=== PATIENT | male | born 1985 | race African-American/Black ===

== ENCOUNTER → 2021-02-20 | Emergency (ER) | payer SELFPAY ==
[~2021-02-20] MED LIST: ACETAMINOPHEN 325 MG TABLET (FP) ONE; ACETAMINOPHEN 500 MG TABLET (FP) PO ONE; DIPHTH,PERTUSS(ACELL),TET 0.5 ML DISP.SYRIN IM ONE; LIDOCAINE HCL 2% (50ML VIAL) SQ ONE
[2021-02-20 03:04] VITALS: BP 136/65; PULSE 77; TEMP 98.1; BMI 24.7
== END ==
LOC: JER 02:39
PROC: 0HQGXZZ Repair Left Hand Skin, External Approach (ICD-10-PCS; principal; 2021-02-20)
PROC: 3E0234Z Introduction of Serum, Toxoid and Vaccine into Muscle, Percutaneous Approach (ICD-10-PCS; 2021-02-20)
DX: S61.412A Laceration without foreign body of left hand, initial encounter (principal); S61.012A Laceration without foreign body of left thumb without damage to nail, initial encounter; W26.8XXA Contact with other sharp object(s), not elsewhere classified, initial encounter
CPT/HCPCS: 90715; 99284-25

== ENCOUNTER 2021-02-27 12:48 | Emergency (ER) | payer BC ==
[2021-02-27 13:06] VITALS: BP 124/65; PULSE 71; TEMP 97.6; BMI 28.1
== END 2021-02-27 13:53 | disposition home or self-care (01) ==
LOC: JERFT 12:48 → JER 12:48 → JERFT 13:53
DX: Z48.02 Encounter for removal of sutures (principal)
CPT/HCPCS: 99281-25

== ENCOUNTER 2021-03-06 13:43 | Emergency (ER) | payer SELFPAY ==
[2021-03-06 13:52] VITALS: BP 120/77; PULSE 72; TEMP 97.9; BMI 27.3
== END 2021-03-06 14:46 | disposition home or self-care (01) ==
LOC: JERFT 13:43
DX: Z48.02 Encounter for removal of sutures (principal)
CPT/HCPCS: 99281-25